=== PATIENT | male | born 1980 | race African-American/Black ===

== ENCOUNTER → 2016-10-09 11:01 | Outpatient (CLI) | payer MEDICARE ==
[~2016-10-09 11:01] MED LIST: DILANTIN100 MG PO; DILANTIN50 MG PO; FELBATOL PO; KEPPRA750 MG PO; MIRALAX17 GM PO; MULTIPLE VITAMI1 TA1 PO; OYST-CAL-5001 TAB PO
== END | disposition home or self-care (01) ==
LOC: D.LABREF 11:01
DX: Z51.81 Encounter for therapeutic drug level monitoring (principal); Z79.899 Other long term (current) drug therapy

== ENCOUNTER → 2016-10-30 10:04 | Outpatient (CLI) | payer MEDICARE ==
[2015-05-19 22:05] VITALS: BMI 22.5
[2016-10-30 13:00] LABS: ALBUMIN 4.1 g/dL (3.4-5.0); BILIRUBIN - DIRECT 0.06 mg/dL (0.00-0.30); BILIRUBIN - INDIRECT 0.07 mg/dL (0.00-1.00); BILIRUBIN - TOTAL 0.13 mg/dL (0.2-1.3); PHENYTOIN (DILANTIN) 19.3 ug/mL (10.0-20.0); PROTEIN - SERUM 7.8 g/dL (6.4-8.2)
== END | disposition home or self-care (01) ==
LOC: D.LABREF 10:04
PROVIDERS: Pediatrics
DX: Z51.81 Encounter for therapeutic drug level monitoring (principal); Z79.899 Other long term (current) drug therapy

== ENCOUNTER → 2016-11-29 14:13 | Outpatient (CLI) | payer MEDICARE ==
[2015-05-19 22:05] VITALS: BMI 22.5
[2016-11-29 16:51] LABS: BASOPHILS 0.2 % (0-2); EOSINOPHILS 3.9 % (0-7); HEMOGLOBIN 14.3 g/dL (13.5-17.5); LYMPHOCYTES 33.6 % (15-50); MCH 31.8 pg (26.0-34.0); MCV 93.5 fL (80.0-100.0); MEAN PLATELET VOLUME 9.2 fL (7.4-10.4); MONOCYTES 6.4 % (2-11); NEUTROPHILS 55.9 % (40-80); PLATELET COUNT 224 10x3/uL (130-400); RBC 4.49 10x6/uL (4.20-6.10); RDW 12.9 % (11.5-14.5); WBC 4.4 10x3/uL (4.8-10.8)
[2016-11-29 17:22] LABS: ALBUMIN 4.2 g/dL (3.4-5.0); BILIRUBIN - DIRECT 0.08 mg/dL (0.00-0.30); BILIRUBIN - INDIRECT 0.18 mg/dL (0.00-1.00); BILIRUBIN - TOTAL 0.26 mg/dL (0.2-1.3); PROTEIN - SERUM 7.9 g/dL (6.4-8.2)
== END | disposition home or self-care (01) ==
LOC: D.LABREF 14:13
PROVIDERS: Pediatrics
DX: R56.9 Unspecified convulsions (principal)

== ENCOUNTER → 2016-12-29 11:12 | Outpatient (CLI) | payer MEDICARE ==
[2015-05-19 22:05] VITALS: BMI 22.5
== END | disposition home or self-care (01) ==
LOC: D.LABREF 11:12
DX: Z51.81 Encounter for therapeutic drug level monitoring (principal); Z79.899 Other long term (current) drug therapy

== ENCOUNTER → 2017-01-05 16:08 | Outpatient (CLI) | payer MEDICARE ==
[2015-05-19 22:05] VITALS: BMI 22.5
== END | disposition home or self-care (01) ==
LOC: D.LABREF 16:08
DX: Z51.81 Encounter for therapeutic drug level monitoring (principal); Z79.899 Other long term (current) drug therapy

== ENCOUNTER 2017-01-11 17:32 | Emergency (ER) | payer MEDICARE ==
[2015-05-19 22:05] VITALS: BMI 22.5
[2017-01-11 19:50] LABS: BASOPHILS 0.2 % (0-2); EOSINOPHILS 5.2 % (0-7); HEMATOCRIT 39.7 % (42.0-54.0); HEMOGLOBIN 13.3 g/dL (13.5-17.5); LYMPHOCYTES 33.4 % (15-50); MCH 31.1 pg (26.0-34.0); MCHC 33.5 g/dL (31.0-37.0); MEAN PLATELET VOLUME 8.7 fL (7.4-10.4); MONOCYTES 10.3 % (2-11); NEUTROPHILS 50.9 % (40-80); PLATELET COUNT 216 10x3/uL (130-400); RBC 4.27 10x6/uL (4.20-6.10); RDW 13.1 % (11.5-14.5); WBC 4.6 10x3/uL (4.8-10.8)
[2017-01-11 20:11] LABS: ALBUMIN 3.6 g/dL (3.4-5.0); ALKALINE PHOSPHATASE 153 U/L (46-116); ALT (SGPT) 51 U/L (10-68); CALC OSMOLALITY 281 mosm/kg (275-300); CALCIUM 8.4 mg/dL (8.5-10.1); CHLORIDE - SERUM 104 mmol/L (98-107); CREATININE - SERUM 0.7 mg/dL (0.6-1.3); GLUCOSE 110 mg/dL (74-106); PHENYTOIN (DILANTIN) 19.9 ug/mL (10.0-20.0); SODIUM 141 mmol/L (136-145); UREA NITROGEN 12 mg/dL (7-18); eGFR NON AFRICAN AMERICAN > 90 mL/min (90-120)
== END 2017-01-11 21:28 | disposition home or self-care (01) ==
LOC: D.ER 17:32
PROVIDERS: Nurse Practitioner Family
DX: R56.9 Unspecified convulsions (principal); S01.81XA Laceration without foreign body of other part of head, initial encounter; X58.XXXA Exposure to other specified factors, initial encounter; Y93.89 Activity, other specified; Y92.89 Other specified places as the place of occurrence of the external cause; S06.0X9A Concussion with loss of consciousness of unspecified duration, initial encounter

== ENCOUNTER → 2017-06-09 18:07 | Outpatient (CLI) | payer MEDICARE ==
[2015-05-19 22:05] VITALS: BMI 22.5
== END | disposition home or self-care (01) ==
LOC: D.LAB 14:20 → D.LABREF 18:07
DX: R56.9 Unspecified convulsions (principal)

== ENCOUNTER → 2017-06-14 16:58 | Outpatient (CLI) | payer MEDICARE ==
[2015-05-19 22:05] VITALS: BMI 22.5
== END | disposition home or self-care (01) ==
LOC: D.LABREF 16:28
DX: R56.9 Unspecified convulsions (principal)

== ENCOUNTER → 2017-07-10 17:20 | Outpatient (CLI) | payer MEDICARE ==
[2015-05-19 22:05] VITALS: BMI 22.5
== END | disposition home or self-care (01) ==
LOC: D.LAB 17:00
DX: G40.209 Localization-related (focal) (partial) symptomatic epilepsy and epileptic syndromes with complex partial seizures, not intractable, without status epilepticus (principal)

== ENCOUNTER → 2017-07-12 08:40 | Outpatient (CLI) | payer MEDICARE ==
[2015-05-19 22:05] VITALS: BMI 22.5
== END | disposition home or self-care (01) ==
LOC: D.LAB 07-11 09:45
DX: G40.209 Localization-related (focal) (partial) symptomatic epilepsy and epileptic syndromes with complex partial seizures, not intractable, without status epilepticus (principal)

== ENCOUNTER → 2017-07-16 11:05 | Outpatient (CLI) | payer MEDICARE ==
[2015-05-19 22:05] VITALS: BMI 22.5
== END | disposition home or self-care (01) ==
LOC: D.LAB 11:01
DX: R56.9 Unspecified convulsions (principal)

== ENCOUNTER → 2017-07-25 09:08 | Outpatient (CLI) | payer MEDICARE ==
[2015-05-19 22:05] VITALS: BMI 22.5
== END | disposition home or self-care (01) ==
LOC: D.LAB 08:15
DX: G40.802 Other epilepsy, not intractable, without status epilepticus (principal); R89.2 Abnormal level of other drugs, medicaments and biological substances in specimens from other organs, systems and tissues

== ENCOUNTER 2017-09-05 09:31 | Outpatient (CLI) | payer MEDICARE ==
[~2017-09-05] VITALS: Ht 167.6 cm; Wt 59.1 kg
[2017-09-05] MEDS ORDERED: KEPPRA750 MG PO (10:03)
[2017-09-05] MEDS ORDERED: VITAMIN D5000 UNIT PO (10:07)
[2017-09-05] MEDS ORDERED: MAGNESIUM OXID250 MG PO (10:07)
[2017-09-05] MEDS ORDERED: FLORAJEN3 CAPS460 MG PO (10:07)
[2017-09-05] MEDS ORDERED: ALLER-CHLOR4 MG PO (10:08)
[2017-09-05 10:15] VITALS: BP 108/70; Ht 167.6 cm; Wt 59.1 kg
== END 2017-09-05 10:30 | disposition home or self-care (01) ==
LOC: D.OPS 09:31
DX: M81.8 Other osteoporosis without current pathological fracture (principal)

== ENCOUNTER → 2017-11-22 20:32 | Outpatient (CLI) | payer MEDICARE ==
[2017-09-05 10:15] VITALS: BMI 21.0
[~2017-11-22 20:32] MED LIST changes: +ALLER-CHLOR4 MG PO; +FLORAJEN3 CAPS460 MG PO; +MAGNESIUM OXID250 MG PO; +VITAMIN D5000 UNIT PO
== END | disposition home or self-care (01) ==
LOC: D.LAB 20:20
DX: Z51.81 Encounter for therapeutic drug level monitoring (principal); Z79.899 Other long term (current) drug therapy

== ENCOUNTER → 2017-12-10 14:09 | Outpatient (CLI) | payer MEDICARE ==
[2017-09-05 10:15] VITALS: BMI 21.0
== END | disposition home or self-care (01) ==
LOC: D.LABREF 14:09
DX: Z51.81 Encounter for therapeutic drug level monitoring (principal); Z79.899 Other long term (current) drug therapy

== ENCOUNTER → 2018-01-23 11:38 | Outpatient (CLI) | payer MEDICARE ==
[2017-09-05 10:15] VITALS: BMI 21.0
== END | disposition home or self-care (01) ==
LOC: D.LABREF 11:38
DX: Z51.81 Encounter for therapeutic drug level monitoring (principal); Z79.899 Other long term (current) drug therapy

== ENCOUNTER 2018-04-23 13:48 | Emergency (ER) | payer MEDICARE ==
[~2018-04-23] VITALS: Ht 167.6 cm; Wt 59.1 kg
[2018-04-23 14:07] VITALS: Ht 167.6 cm; Wt 59.1 kg
[2018-04-23] MEDS ORDERED: TYLENOL W/CODEI1 TAB PO (15:24)
[2018-04-23] MEDS ORDERED: BACTRIM 400-801 TAB PO (15:24)
[2018-04-23] MEDS ORDERED: VOLTAREN75 MG PO (15:46)
[2018-04-23 16:20] VITALS: BP 113/67
== END 2018-04-23 16:23 | disposition home or self-care (01) ==
LOC: D.ER 13:48
DX: S82.51XA Displaced fracture of medial malleolus of right tibia, initial encounter for closed fracture (principal); W18.30XA Fall on same level, unspecified, initial encounter; Y93.89 Activity, other specified; Y92.019 Unspecified place in single-family (private) house as the place of occurrence of the external cause; G40.909 Epilepsy, unspecified, not intractable, without status epilepticus

== ENCOUNTER → 2018-04-26 15:15 | Outpatient (CLI) | payer MEDICARE ==
[2018-04-23 14:07] VITALS: BMI 21.0
[~2018-04-26 15:15] MED LIST changes: +BACTRIM 400-801 TAB PO; +TYLENOL W/CODEI1 TAB PO; +VOLTAREN75 MG PO
== END | disposition home or self-care (01) ==
LOC: D.LABREF 15:15
DX: G40.909 Epilepsy, unspecified, not intractable, without status epilepticus (principal)

== ENCOUNTER → 2018-04-30 13:02 | Outpatient (CLI) | payer MEDICARE ==
[2018-04-23 14:07] VITALS: BMI 21.0
== END | disposition home or self-care (01) ==
LOC: D.LABREF 13:02
DX: G40.909 Epilepsy, unspecified, not intractable, without status epilepticus (principal); Z51.81 Encounter for therapeutic drug level monitoring; Z79.899 Other long term (current) drug therapy

== ENCOUNTER → 2018-05-16 15:01 | Outpatient (CLI) | payer MEDICARE ==
[2018-04-23 14:07] VITALS: BMI 21.0
== END | disposition home or self-care (01) ==
LOC: D.LAB 15:01
DX: G40.909 Epilepsy, unspecified, not intractable, without status epilepticus (principal); Z51.81 Encounter for therapeutic drug level monitoring; Z79.899 Other long term (current) drug therapy

== ENCOUNTER → 2018-05-24 14:32 | Outpatient (CLI) | payer MEDICARE ==
[2018-04-23 14:07] VITALS: BMI 21.0
== END | disposition home or self-care (01) ==
LOC: D.LABREF 14:32
DX: Z51.81 Encounter for therapeutic drug level monitoring (principal); Z79.899 Other long term (current) drug therapy

== ENCOUNTER → 2018-06-20 15:19 | Outpatient (CLI) | payer MEDICARE ==
[2018-04-23 14:07] VITALS: BMI 21.0
== END | disposition home or self-care (01) ==
LOC: D.LAB
DX: G40.209 Localization-related (focal) (partial) symptomatic epilepsy and epileptic syndromes with complex partial seizures, not intractable, without status epilepticus (principal)

== ENCOUNTER → 2018-06-27 19:50 | Outpatient (CLI) | payer MEDICARE ==
[2018-04-23 14:07] VITALS: BMI 21.0
== END | disposition home or self-care (01) ==
LOC: D.LABREF 19:50
DX: Z51.81 Encounter for therapeutic drug level monitoring (principal); Z79.899 Other long term (current) drug therapy

== ENCOUNTER → 2018-07-11 16:02 | Outpatient (CLI) | payer MEDICARE ==
[2018-04-23 14:07] VITALS: BMI 21.0
== END | disposition home or self-care (01) ==
LOC: D.LAB 16:02
DX: G40.209 Localization-related (focal) (partial) symptomatic epilepsy and epileptic syndromes with complex partial seizures, not intractable, without status epilepticus (principal)

== ENCOUNTER → 2018-10-19 13:11 | Outpatient (CLI) | payer MEDICARE | END | disposition home or self-care (01) | LOC: D.LABREF 13:11 | DX: G40.909 Epilepsy, unspecified, not intractable, without status epilepticus (principal) ==

== ENCOUNTER → 2019-09-04 15:20 | Outpatient (CLI) | payer MEDICARE ==
[2019-07-01 12:25] VITALS: BMI 20.8
[~2019-09-04 15:20] MED LIST changes: +KEPPRA250 MG PO; +NAPROSYN500 MG PO
== END | disposition home or self-care (01) ==
LOC: D.LABREF 15:20
PROVIDERS: ATTEND Pediatrics
DX: Z79.899 Other long term (current) drug therapy (principal)

== ENCOUNTER → 2019-09-24 14:04 | Outpatient (CLI) | payer MEDICARE ==
[2019-07-01 12:25] VITALS: BMI 20.8
== END | disposition home or self-care (01) ==
LOC: D.LABREF 14:04
PROVIDERS: ATTEND Pediatrics
DX: Z79.899 Other long term (current) drug therapy (principal)

== ENCOUNTER 2019-10-09 16:48 | Inpatient (IN) | payer MEDICARE ==
[~2019-10-09] VITALS: Ht 172.7 cm; Wt 58.1 kg
--- NOTE | ~2019-10-09 | EEG ---
PATIENT:JENNIFER VERAS MEDICAL RECORD: [id number] DATE OF : [birth year] LOCATION:D.222 D.MS ADMISSION DATE: 10/09/19 REFERRING PHYSICIAN: INTERPRETING PHYSICIAN: VIK RHODES MD DATE OF SERVICE: 10/14/2019 ROOM: #2220 ORDERED BY: Dr. Rhodes. CASE HISTORY: A 39-year-old male with known lifelong seizure disorder with report of recent new onset drop attacks. Long history of neurologic care with medications presently including phenytoin, levetiracetam, felbamate and has vagal nerve stimulator in place. PROCEDURE: EEG done as a routine bedside portable recording using the standard 10-20 international electrode system. 16 channels used with 17th as EKG. Photic stimulation and hyperventilation were done as activation procedures. DESCRIPTION: EEG opens with the patient awake with the record displaying only fair to poor organization of background with prominent background theta, best at 4-5 Hz with intermixed delta slowing. Frequent bilateral independent single theta slow waves as well as frequent bilateral independent single sharp waves were seen with more prominent sharps throughout the right hemisphere prominently at C4. Occasional complexes of moderate to high voltage theta and delta were seen bilaterally. Photic stimulation did not yield a significant driving response. There was a photomyogenic or photoparoxysmal response seen. Hyperventilation did not yield significant buildup in background voltages without paroxysmal response. Later in the record were seen brief bursts of generalized high voltage spike and wave. One associated with a twitch of the head and another twitch of the torso. These brief bursts of high voltage spike and wave are followed by delta slowing. IMPRESSION: Moderately abnormal EEG with diffuse background slowing suggesting diffuse cortical dysfunction and possibly static encephalopathy, the appearance of spike and wave suggests a seizure disorder with record confirming history of seizure disorder. TRANSINT:[id number] Voice Confirmation ID: [id number] DOCUMENT ID: [id number] VIK RHODES MD CC: [id number] DICTATION DATE: 10/14/191944 CLINICAL MANAGER HOME CARE: 10/15/19425 DIS IN 10/14/19 [place] [id number] [place] [id number]
[2019-10-09 17:18] LABS: BASOPHILS 0.2 % (0-2); EOSINOPHILS 2.9 % (0-7); HEMATOCRIT 43.7 % (42.0-54.0); HEMOGLOBIN 14.3 g/dL (13.5-17.5); IMMATURE GRANULOCYTES 0.2 % (0-5); LYMPHOCYTES 31.3 % (15-50); MCH 31.2 pg (26.0-34.0); MCHC 32.7 g/dL (31.0-37.0); MCV 95.2 fL (80.0-100.0); MEAN PLATELET VOLUME 8.6 fL (7.4-10.4); MONOCYTES 8.4 % (2-11); PLATELET COUNT 213 10x3/uL (130-400); RBC 4.59 10x6/uL (4.20-6.10); RDW 13.4 % (11.5-14.5); WBC 6.2 10x3/uL (4.8-10.8)
[2019-10-09 17:26] LABS: CALC OSMOLALITY 281 mosm/kg (275-300); CALCIUM 9.4 mg/dL (8.5-10.1); CARBON DIOXIDE 31.5 mmol/L (21.0-32.0); CHLORIDE - SERUM 102 mmol/L (98-107); GLUCOSE 100 mg/dL (74-106); POTASSIUM - SERUM 4.3 mmol/L (3.5-5.1); SODIUM 140 mmol/L (136-145); UREA NITROGEN 20 mg/dL (7-18); eGFR NON AFRICAN AMERICAN 87 mL/min (90-120)
[2019-10-09 17:32] LABS: ALKALINE PHOSPHATASE 118 U/L (30-120); ALT (SGPT) 39 U/L (10-68); BILIRUBIN - TOTAL 0.18 mg/dL (0.2-1.3); MAGNESIUM - SERUM 1.7 mg/dL (1.8-2.4); PHENYTOIN (DILANTIN) 18.8 ug/mL (10.0-20.0); PROTEIN - SERUM 7.7 g/dL (6.4-8.2)
[2019-10-09 21:15] LABS: BILIRUBIN NEGATIVE (NEGATIVE); GLUCOSE NEGATIVE (NEGATIVE); KETONE NEGATIVE (NEGATIVE); NITRITE NEGATIVE (NEGATIVE); SPECIFIC GRAVITY 1.025 (1.005-1.020); UROBILINOGEN NORMAL (NORMAL)
[2019-10-09 21:23] LABS: UDS - AMPHET NEGATIVE QUAL (NEGATIVE); UDS - BARB NEGATIVE QUAL (NEGATIVE); UDS - BENZO NEGATIVE QUAL (NEGATIVE); UDS - COCAINE NEGATIVE QUAL (NEGATIVE); UDS - OPIATE NEGATIVE QUAL (NEGATIVE); UDS - PCP NEGATIVE QUAL (NEGATIVE); UDS - THC NEGATIVE QUAL (NEGATIVE)
[2019-10-10] VITALS (7 sets, daily range): BP systolic 109–123; BP diastolic 61–80; Ht 172.7 cm; Wt 58.1 kg
[2019-10-11] VITALS: BP 118/64
[2019-10-11 04:00] VITALS: BP 110/67
[2019-10-11 05:32] LABS: BASOPHILS 0.2 % (0-2); EOSINOPHILS 3.5 % (0-7); HEMOGLOBIN 13.4 g/dL (13.5-17.5); IMMATURE GRANULOCYTES 0.4 % (0-5); LYMPHOCYTES 44.5 % (15-50); MCHC 32.7 g/dL (31.0-37.0); MCV 94.9 fL (80.0-100.0); MEAN PLATELET VOLUME 8.3 fL (7.4-10.4); MONOCYTES 8.6 % (2-11); NEUTROPHILS 42.8 % (40-80); PLATELET COUNT 226 10x3/uL (130-400); RBC 4.32 10x6/uL (4.20-6.10); RDW 13.5 % (11.5-14.5); WBC 5.2 10x3/uL (4.8-10.8)
[2019-10-11 05:47] LABS: CALC OSMOLALITY 274 mosm/kg (275-300); CALCIUM 7.6 mg/dL (8.5-10.1); CHLORIDE - SERUM 104 mmol/L (98-107); CREATININE - SERUM 0.8 mg/dL (0.6-1.3); GLUCOSE 90 mg/dL (74-106); MAGNESIUM - SERUM 1.9 mg/dL (1.8-2.4); PHOSPHOROUS 2.9 mg/dL (2.5-4.9); POTASSIUM - SERUM 3.6 mmol/L (3.5-5.1); SODIUM 137 mmol/L (136-145); UREA NITROGEN 14 mg/dL (7-18); eGFR NON AFRICAN AMERICAN > 90 mL/min (90-120)
[2019-10-11 09:00] VITALS: BP 103/67
[2019-10-11 14:18] VITALS: BP 114/68
[2019-10-11 20:00] VITALS: BP 117/70
[2019-10-12] VITALS: BP 111/74
[2019-10-12 04:00] VITALS: BP 108/74
[2019-10-12 05:28] LABS: BASOPHILS 0.1 % (0-2); EOSINOPHILS 2.1 % (0-7); HEMATOCRIT 41.6 % (42.0-54.0); HEMOGLOBIN 13.6 g/dL (13.5-17.5); IMMATURE GRANULOCYTES 0.1 % (0-5); LYMPHOCYTES 26.7 % (15-50); MCH 30.8 pg (26.0-34.0); MCHC 32.7 g/dL (31.0-37.0); MCV 94.1 fL (80.0-100.0); MEAN PLATELET VOLUME 8.3 fL (7.4-10.4); MONOCYTES 7.7 % (2-11); NEUTROPHILS 63.3 % (40-80); PLATELET COUNT 203 10x3/uL (130-400); RBC 4.42 10x6/uL (4.20-6.10); RDW 13.4 % (11.5-14.5)
[2019-10-12 05:36] LABS: WBC 7.6 10x3/uL (4.8-10.8)
[2019-10-12 05:57] LABS: CALC OSMOLALITY 276 mosm/kg (275-300); CALCIUM 7.7 mg/dL (8.5-10.1); CARBON DIOXIDE 24.9 mmol/L (21.0-32.0); CHLORIDE - SERUM 105 mmol/L (98-107); CREATININE - SERUM 0.7 mg/dL (0.6-1.3); GLUCOSE 93 mg/dL (74-106); MAGNESIUM - SERUM 2.1 mg/dL (1.8-2.4); PHOSPHOROUS 2.7 mg/dL (2.5-4.9); SODIUM 138 mmol/L (136-145); UREA NITROGEN 14 mg/dL (7-18); eGFR NON AFRICAN AMERICAN > 90 mL/min (90-120)
[2019-10-12 17:50] VITALS: BP 110/70
[2019-10-12 22:30] VITALS: BP 98/51
[2019-10-13 01:25] VITALS: BP 108/54
[2019-10-13 04:13] VITALS: BP 96/53
[2019-10-13 04:52] LABS: BASOPHILS 0.2 % (0-2); EOSINOPHILS 2.9 % (0-7); HEMATOCRIT 41.5 % (42.0-54.0); HEMOGLOBIN 13.5 g/dL (13.5-17.5); IMMATURE GRANULOCYTES 0.4 % (0-5); LYMPHOCYTES 38.3 % (15-50); MCH 30.9 pg (26.0-34.0); MCHC 32.5 g/dL (31.0-37.0); MEAN PLATELET VOLUME 8.4 fL (7.4-10.4); MONOCYTES 8.9 % (2-11); NEUTROPHILS 49.3 % (40-80); PLATELET COUNT 224 10x3/uL (130-400); RBC 4.37 10x6/uL (4.20-6.10); RDW 13.6 % (11.5-14.5)
[2019-10-13 05:18] LABS: WBC 5.6 10x3/uL (4.8-10.8)
[2019-10-13 05:26] LABS: CALC OSMOLALITY 274 mosm/kg (275-300); CALCIUM 7.5 mg/dL (8.5-10.1); CARBON DIOXIDE 26.3 mmol/L (21.0-32.0); CHLORIDE - SERUM 104 mmol/L (98-107); CREATININE - SERUM 0.8 mg/dL (0.6-1.3); GLUCOSE 91 mg/dL (74-106); MAGNESIUM - SERUM 1.9 mg/dL (1.8-2.4); PHOSPHOROUS 2.3 mg/dL (2.5-4.9); SODIUM 137 mmol/L (136-145); UREA NITROGEN 14 mg/dL (7-18); eGFR NON AFRICAN AMERICAN > 90 mL/min (90-120)
[2019-10-13 09:27] VITALS: BP 155/92
[2019-10-13 13:19] VITALS: BP 105/69
[2019-10-13 17:47] VITALS: BP 110/56
[2019-10-13 20:00] VITALS: BP 133/87
[2019-10-14 00:57] VITALS: BP 131/62
[2019-10-14 04:57] VITALS: BP 142/57
[2019-10-14 05:07] LABS: BASOPHILS 0.2 % (0-2); EOSINOPHILS 2.5 % (0-7); HEMATOCRIT 40.9 % (42.0-54.0); HEMOGLOBIN 13.3 g/dL (13.5-17.5); IMMATURE GRANULOCYTES 0.4 % (0-5); LYMPHOCYTES 39.9 % (15-50); MCH 31.1 pg (26.0-34.0); MCHC 32.5 g/dL (31.0-37.0); MCV 95.6 fL (80.0-100.0); MEAN PLATELET VOLUME 8.9 fL (7.4-10.4); MONOCYTES 8.6 % (2-11); NEUTROPHILS 48.4 % (40-80); PLATELET COUNT 210 10x3/uL (130-400); RBC 4.28 10x6/uL (4.20-6.10); RDW 13.6 % (11.5-14.5); WBC 5.7 10x3/uL (4.8-10.8)
[2019-10-14 05:25] LABS: CALC OSMOLALITY 280 mosm/kg (275-300); CALCIUM 8.1 mg/dL (8.5-10.1); CARBON DIOXIDE 27.7 mmol/L (21.0-32.0); CHLORIDE - SERUM 106 mmol/L (98-107); CREATININE - SERUM 0.7 mg/dL (0.6-1.3); GLUCOSE 88 mg/dL (74-106); MAGNESIUM - SERUM 1.7 mg/dL (1.8-2.4); POTASSIUM - SERUM 4.1 mmol/L (3.5-5.1); SODIUM 141 mmol/L (136-145); UREA NITROGEN 14 mg/dL (7-18); eGFR NON AFRICAN AMERICAN > 90 mL/min (90-120)
[2019-10-14 05:28] LABS: PHOSPHOROUS 3.4 mg/dL (2.5-4.9)
[2019-10-14 12:48] VITALS: BP 122/91
[2019-10-14] MEDS ORDERED: KEPPRA750 MG PO (14:57)
--- NOTE | 2019-10-14 16:13 | MORECARE ---
CASE MANAGEMENT DISCHARGE SUMMARY PATIENT: JENNIFER VERAS UNIT: [id number] ADM DATE: 10/09/19 AGE: 39 : [birth year] SEX: M ROOM/BED: D.2220 AUTHOR: JAZZY MONAHAN PHYSICIAN: REFERRING PHYSICIAN: ESTHER MANUEL MD DATE OF SERVICE: 10/14/19 Discharge Plan Patient Name: JENNIFER VERAS Facility: [facility]:[place] : 1980 Planned Disposition: Assisted Living Anticipated Discharge Date: Discharge Date: Expected LOS: Initial Reviewer: [email or web address] Initial Review Date: 10/09/2019 Generated: 10/14/19 5:12 pm Patient Name: JENNIFER VERAS Page [id number] at 1613 All edits/amendments must be made on the electronic document DICTATION DATE: 10/14/191611 PARTY DEMONSTRATOR: DENNIS 10/14/19 161 RPT#: [id number] DC DATE: STATUS: ADM IN [facility] [address] [place] [address] END OF REPORT
--- NOTE | 2019-10-14 16:21 | MORECARE ---
CASE MANAGEMENT DISCHARGE SUMMARY PATIENT: JENNIFER VERAS UNIT: [id number] ADM DATE: 10/09/19 AGE: 39 : [birth year] SEX: M ROOM/BED: D.2220 AUTHOR: JAZZY MONAHAN PHYSICIAN: REFERRING PHYSICIAN: ESTHER MANUEL MD DATE OF SERVICE: 10/14/19 Discharge Plan Patient Name: JENNIFER VERAS [facility] [facility] 1980 Planned Disposition: Assisted Living Anticipated Discharge Date: Discharge Date: Expected LOS: Initial Reviewer: [email or web address] Initial Review Date: 10/09/2019 Generated: 10/14/19 5:20 pm Last DP export: 10/14/19 3:13 p Patient Name: JENNIFER VERAS Page [id number] at 1621 All edits/amendments must be made on the electronic document DICTATION DATE: 10/14/19 1620 CLIENT DEVELOPMENT MANAGER: DM 10/14/19 1620 RPT#: [id number] DC DATE: STATUS: ADM IN [facility] [address] [place] [address] END OF REPORT
--- NOTE | 2019-10-14 16:29 | MORECARE ---
CASE MANAGEMENT DISCHARGE SUMMARY PATIENT: JENNIFER ACOSTA UNIT: [id number] ADM DATE: 10/09/19 AGE: 39 : [birth year] SEX: M ROOM/BED: D.2220 AUTHOR: HERO,DOC PHYSICIAN: REFERRING PHYSICIAN: ESTHER MANUEL MD DATE OF SERVICE: 10/14/19 Discharge Plan Patient Name: JENNIFER ACOSTA Facility: [facility]:[place] : 1980 Planned Disposition: Assisted Living Anticipated Discharge Date: Discharge Date: Expected LOS: Initial Reviewer: [email or web address] Initial Review Date: 10/09/2019 Generated: 10/14/19 5:29 pm Comments DCP- Discharge Planning Updated by [id number]: Mary Anne Haynes on 10/14/19 3:[address] Patient Name: JENNIFER ACOSTA Admission Status: ER Accout number: [id number] Admission Date: 10-09-2019 : 1980 Admission Diagnosis:OTH GENERALIZED EPILEPSY, NOT INTRACTABLE, W/O STAT EPI Attending: ESTHER MANUEL Current LOS: 5 Anticipated DC Date: Planned Disposition: Assisted Living Primary Insurance: MEDICARE A & B Discharge Planning Comments: CM spoke with Isabella Acosta (patients POA and mother) to complete initial dc planning assessment. CM educated his mother on the CM role and verbal consent given by patient to complete assessment. Patient lives at an apartment on [address] with [facility]. At discharge she plans to take him there and feels this is a safe discharge. CM discussed availability of home health, rehab services, and medical equipment. He works with [facility] and his medications are through [facility]. Patient did express concern about it being too noisy at his apartment. IMM went over with his mother via phone. CM will continue to follow and will assist as needed with dc plans/needs. End Stapler: Mary Anne Haynes DCPIA - Discharge Planning Initial Assessment Updated by [email or web address]: Mary Anne Haynes on 10/14/19 4:21 pm * Is the patient Alert and Oriented? Yes * PCP MAROI * Pharmacy [facility] * Preadmission Environment Senior Living * Facility Name [facility] [address] * ADLs Independent * Equipment None * List name and contact numbers for known caregivers / representatives who currently or will assist patient after discharge: ISABELLA ACOSTA (MOTHER) [phone] DIALLO REYNAGA (AUNT) * Verbal permission to speak to the caregivers and representatives has been obtained from the patient. N/A * Community resources currently utilized Other * Please name any agencies selected above. [facility] * Additional services required to return to the preadmission environment? No * Can the patient safely return to the preadmission environment? Yes * Has this patient been hospitalized within the prior 30 days at any hospital? No Coverage Notice Reviewer: [email or web address] Shala Haynes Notice Issued Date-Time: 10/14/2019 16:00 Notice Type: IM Discharge Notice Notice Delivered To: Family Member Relationship to Patient: Mother Complex Director Name: ISABELLA ACOSTA Delivery Method: PHONE - Phone Meche Days: Prior Verbal Notification: Yes Recipient Understood Notice: Recipient Signature: Med Rec Note Co-signed by Attending: Coverage Notice Comment: IMM OVER PHONE Last DP export: 10/14/19 3:21 p Patient Name: JENNIFER ACOSTA Page [phone] at 1629 All edits/amendments must be made on the electronic document DICTATION DATE: 10/14/191628 GAS PLANT OPERATOR: DENNIS 10/14/191628 RPT#: [id number] DC DATE: STATUS: ADM IN [facility] [address] [place] [address] END OF REPORT
--- NOTE | 2019-10-15 09:02 | MORECARE ---
CASE MANAGEMENT DISCHARGE SUMMARY PATIENT: JENNIFER ACOSTA UNIT: [id number] ADM DATE: 10/09/19 AGE: 39 : [birth year] SEX: M ROOM/BED: D.2220 AUTHOR: HERO,DOC PHYSICIAN: REFERRING PHYSICIAN: ESTHER MANUEL MD DATE OF SERVICE: 10/15/19 Discharge Plan Patient Name: JENNIFER ACOSTA Facility: [facility]:[place] : 1980 Planned Disposition: Assisted Living Anticipated Discharge Date: Discharge Date: 10/14/2019 Expected LOS: Initial Reviewer: [email or web address] Initial Review Date: 10/09/2019 Generated: 10/15/19 10:01 am Comments DCP- Discharge Planning Updated by [email or web address]: Mary Anne Haynes on 10/14/19 3:[address] Patient Name: JENNIFER ACOSTA Admission Status: ER Accout number: [id number] Admission Date: 10-09-2019 : 1980 Admission Diagnosis:OTH GENERALIZED EPILEPSY, NOT INTRACTABLE, W/O STAT EPI Attending: ESTHER MANUEL Current LOS: 5 Anticipated DC Date: Planned Disposition: Assisted Living Primary Insurance: MEDICARE A & B Discharge Planning Comments: CM spoke with Isabella Acosta (patients POA and mother) to complete initial dc planning assessment. CM educated his mother on the CM role and verbal consent given by patient to complete assessment. Patient lives at an apartment on [address] with [facility]. At discharge she plans to take him there and feels this is a safe discharge. CM discussed availability of home health, rehab services, and medical equipment. He works with [facility] and his medications are through [facility]. Patient did express concern about it being too noisy at his apartment. IMM went over with his mother via phone. CM will continue to follow and will assist as needed with dc plans/needs. Geophysical Laboratory Supervisor: Mary Anne Haynes DCPIA - Discharge Planning Initial Assessment Updated by [email or web address]: Mary Anne Haynes on 10/14/19 4:21 pm * Is the patient Alert and Oriented? Yes * PCP MARIO * Pharmacy [facility] * Preadmission Environment Skilled Nursing * Facility Name [facility] [address] * ADLs Independent * Equipment None * List name and contact numbers for known caregivers / representatives who currently or will assist patient after discharge: ISABELLA ACOSTA (MOTHER) [phone] DIALLO REYNAGA (AUNT) * Verbal permission to speak to the caregivers and representatives has been obtained from the patient. N/A * Community resources currently utilized Other * Please name any agencies selected above. [facility] * Additional services required to return to the preadmission environment? No * Can the patient safely return to the preadmission environment? Yes * Has this patient been hospitalized within the prior 30 days at any hospital? No Coverage Notice Reviewer: [email or web address] Shala Haynes Notice Issued Date-Time: 10/14/2019 16:00 Notice Type: IM Discharge Notice Notice Delivered To: Family Member Relationship to Patient: Mother Tow Boat Captain Name: ISABELLA ACOSTA Delivery Method: PHONE - Phone Meche Days: Prior Verbal Notification: Yes Recipient Understood Notice: Recipient Signature: Med Rec Note Co-signed by Attending: Coverage Notice Comment: IMM OVER PHONE Last DP export: 10/14/19 3:29 p Patient Name: JENNIFER ACOSTA Page [id number] at 0902 All edits/amendments must be made on the electronic document DICTATION DATE: 10/15/19900 PORTABLE TRACK CREW CHIEF: DENNIS 10/15/19900 RPT#: [id number] DC DATE:10/14/19 STATUS: DIS IN [facility] [address] [place] [address] END OF REPORT
== END 2019-10-14 17:26 | disposition home or self-care (01) | DRG 101 ==
LOC: D.ER 16:48 → D.MS 19:18
PROVIDERS: Family Medicine; ADMIT Internal Medicine Nephrology; ATTEND Internal Medicine Nephrology
DX: G40.409 Other generalized epilepsy and epileptic syndromes, not intractable, without status epilepticus (principal); D64.9 Anemia, unspecified; E83.42 Hypomagnesemia; S01.91XA Laceration without foreign body of unspecified part of head, initial encounter

== ENCOUNTER 2019-11-19 18:44 | Emergency (ER) | payer MEDICARE ==
[~2019-11-19] VITALS: Ht 172.7 cm; Wt 59.1 kg
[2019-11-19 19:11] VITALS: Ht 172.7 cm; Wt 59.1 kg
[2019-11-19 19:47] LABS: BASOPHILS 0.2 % (0-2); EOSINOPHILS 4.4 % (0-7); HEMOGLOBIN 13.9 g/dL (13.5-17.5); IMMATURE GRANULOCYTES 0.2 % (0-5); LYMPHOCYTES 42.6 % (15-50); MCH 31.4 pg (26.0-34.0); MCHC 33.1 g/dL (31.0-37.0); MCV 94.8 fL (80.0-100.0); MEAN PLATELET VOLUME 8.4 fL (7.4-10.4); MONOCYTES 12.1 % (2-11); NEUTROPHILS 40.5 % (40-80); PLATELET COUNT 181 10x3/uL (130-400); RBC 4.43 10x6/uL (4.20-6.10); RDW 12.9 % (11.5-14.5); WBC 4.5 10x3/uL (4.8-10.8)
[2019-11-19 20:17] LABS: CALC OSMOLALITY 279 mosm/kg (275-300); CARBON DIOXIDE 30.2 mmol/L (21.0-32.0); CHLORIDE - SERUM 104 mmol/L (98-107); CREATININE - SERUM 0.7 mg/dL (0.6-1.3); GLUCOSE 94 mg/dL (74-106); POTASSIUM - SERUM 4.2 mmol/L (3.5-5.1); SODIUM 139 mmol/L (136-145); UREA NITROGEN 17 mg/dL (7-18); eGFR NON AFRICAN AMERICAN > 90 mL/min (90-120)
[2019-11-19 20:21] LABS: ALBUMIN 3.9 g/dL (3.4-5.0); ALKALINE PHOSPHATASE 101 U/L (30-120); ALT (SGPT) 38 U/L (10-68); BILIRUBIN - TOTAL 0.18 mg/dL (0.2-1.3); MAGNESIUM - SERUM 1.7 mg/dL (1.8-2.4); PHENYTOIN (DILANTIN) 17.5 ug/mL (10.0-20.0); PROTEIN - SERUM 7.5 g/dL (6.4-8.2)
[2019-11-19 21:12] LABS: UDS - AMPHET NEGATIVE QUAL (NEGATIVE); UDS - BARB NEGATIVE QUAL (NEGATIVE); UDS - BENZO NEGATIVE QUAL (NEGATIVE); UDS - COCAINE NEGATIVE QUAL (NEGATIVE); UDS - OPIATE NEGATIVE QUAL (NEGATIVE); UDS - PCP NEGATIVE QUAL (NEGATIVE); UDS - THC NEGATIVE QUAL (NEGATIVE)
[2019-11-19 21:35] VITALS: BP 132/70
== END 2019-11-19 21:35 | disposition home or self-care (01) ==
LOC: D.ER 18:44
PROVIDERS: Family Medicine
DX: S09.90XA Unspecified injury of head, initial encounter (principal); R51 Headache; M54.2 Cervicalgia; G40.909 Epilepsy, unspecified, not intractable, without status epilepticus

== ENCOUNTER → 2019-11-26 13:19 | Outpatient (CLI) | payer MEDICARE ==
[2019-11-19 19:11] VITALS: BMI 19.8
[~2019-11-26 13:19] MED LIST changes: +KEPPRA1000 MG PO
== END | disposition home or self-care (01) ==
LOC: D.LABREF 13:19
PROVIDERS: ATTEND Pediatrics
DX: R56.9 Unspecified convulsions (principal)

== ENCOUNTER 2019-11-28 15:33 | Emergency (ER) | payer MEDICARE ==
[~2019-11-28] VITALS: Ht 172.7 cm; Wt 59.1 kg
[~2019-11-28 15:33] MED LIST changes: -KEPPRA1000 MG PO
[2019-11-28 15:36] VITALS: Ht 172.7 cm; Wt 59.1 kg
[2019-11-28] MEDS ORDERED: KEPPRA1000 MG PO ×2 (15:42→16:41)
[2019-11-28 15:59] LABS: BASOPHILS 0.4 % (0-2); EOSINOPHILS 3.3 % (0-7); HEMATOCRIT 41.7 % (42.0-54.0); HEMOGLOBIN 14.1 g/dL (13.5-17.5); IMMATURE GRANULOCYTES 0.2 % (0-5); LYMPHOCYTES 33.3 % (15-50); MCH 31.4 pg (26.0-34.0); MCHC 33.8 g/dL (31.0-37.0); MCV 92.9 fL (80.0-100.0); MEAN PLATELET VOLUME 8.5 fL (7.4-10.4); MONOCYTES 7.7 % (2-11); NEUTROPHILS 55.1 % (40-80); PLATELET COUNT 203 10x3/uL (130-400); RBC 4.49 10x6/uL (4.20-6.10); RDW 13.1 % (11.5-14.5); WBC 5.2 10x3/uL (4.8-10.8)
[2019-11-28 16:09] LABS: CALC OSMOLALITY 278 mosm/kg (275-300); CALCIUM 8.9 mg/dL (8.5-10.1); CHLORIDE - SERUM 104 mmol/L (98-107); CREATININE - SERUM 0.9 mg/dL (0.6-1.3); GLUCOSE 88 mg/dL (74-106); POTASSIUM - SERUM 4.3 mmol/L (3.5-5.1); SODIUM 139 mmol/L (136-145); UREA NITROGEN 19 mg/dL (7-18); eGFR NON AFRICAN AMERICAN > 90 mL/min (90-120)
[2019-11-28 16:15] LABS: ALBUMIN 3.9 g/dL (3.4-5.0); ALKALINE PHOSPHATASE 107 U/L (30-120); ALT (SGPT) 41 U/L (10-68); MAGNESIUM - SERUM 1.6 mg/dL (1.8-2.4); PHENYTOIN (DILANTIN) 19.4 ug/mL (10.0-20.0); PROTEIN - SERUM 7.7 g/dL (6.4-8.2)
== END 2019-11-28 16:48 | disposition home or self-care (01) ==
LOC: D.ER 15:33
PROVIDERS: Family Medicine
DX: R56.9 Unspecified convulsions (principal)

== ENCOUNTER 2019-12-03 18:44 | Emergency (ER) | payer MEDICARE ==
[~2019-12-03] VITALS: Ht 172.7 cm; Wt 59.0 kg
[~2019-12-03 18:44] MED LIST changes: +KEPPRA1000 MG PO
[2019-12-03 18:52] VITALS: Ht 172.7 cm; Wt 59.0 kg
[2019-12-03 20:58] VITALS: BP 120/79
== END 2019-12-03 20:45 | disposition home or self-care (01) ==
LOC: D.ER 18:44
DX: S01.112A Laceration without foreign body of left eyelid and periocular area, initial encounter (principal); W45.8XXA Other foreign body or object entering through skin, initial encounter; Y93.9 Activity, unspecified; Y92.9 Unspecified place or not applicable

== ENCOUNTER → 2019-12-12 11:02 | Outpatient (CLI) | payer MEDICARE ==
[2019-12-03 18:52] VITALS: BMI 19.8
[2019-12-12 12:25] LABS: PHENYTOIN (DILANTIN) 22.3 ug/mL (10.0-20.0)
== END | disposition home or self-care (01) ==
LOC: D.LABREF 11:02
PROVIDERS: ATTEND Pediatrics
DX: Z79.899 Other long term (current) drug therapy (principal)

== ENCOUNTER → 2020-01-08 13:30 | Outpatient (CLI) | payer MEDICARE ==
[2019-12-03 18:52] VITALS: BMI 19.8
== END | disposition home or self-care (01) ==
LOC: D.LABREF 13:30
PROVIDERS: ATTEND Pediatrics
DX: R56.9 Unspecified convulsions (principal)

== ENCOUNTER → 2020-01-09 15:03 | Outpatient (CLI) | payer MEDICARE ==
[2019-12-03 18:52] VITALS: BMI 19.8
== END | disposition home or self-care (01) ==
LOC: D.LABREF 15:03
PROVIDERS: ATTEND Pediatrics
DX: Z79.899 Other long term (current) drug therapy (principal)

== ENCOUNTER → 2020-01-27 10:21 | Outpatient (CLI) | payer MEDICARE ==
[2019-12-03 18:52] VITALS: BMI 19.8
== END | disposition home or self-care (01) ==
LOC: D.LABREF 10:21
PROVIDERS: ATTEND Pediatrics
DX: R56.9 Unspecified convulsions (principal)

== ENCOUNTER → 2020-01-28 12:26 | Outpatient (CLI) | payer MEDICARE ==
[2019-12-03 18:52] VITALS: BMI 19.8
== END | disposition home or self-care (01) ==
LOC: D.LABREF 12:26
PROVIDERS: ATTEND Pediatrics
DX: Z79.899 Other long term (current) drug therapy (principal)

== ENCOUNTER → 2020-01-29 08:48 | Outpatient (CLI) | payer MEDICARE ==
[2019-12-03 18:52] VITALS: BMI 19.8
== END | disposition home or self-care (01) ==
LOC: D.LABREF 08:48
PROVIDERS: ATTEND Pediatrics
DX: R56.9 Unspecified convulsions (principal)

== ENCOUNTER → 2020-01-31 10:03 | Outpatient (CLI) | payer MEDICARE ==
[2019-12-03 18:52] VITALS: BMI 19.8
== END | disposition home or self-care (01) ==
LOC: D.LABREF 10:03
PROVIDERS: ATTEND Pediatrics
DX: Z79.899 Other long term (current) drug therapy (principal)

== ENCOUNTER → 2020-02-03 14:59 | Outpatient (CLI) | payer MEDICARE ==
[2019-12-03 18:52] VITALS: BMI 19.8
== END | disposition home or self-care (01) ==
LOC: D.LABREF 14:59
PROVIDERS: ATTEND Pediatrics
DX: Z79.899 Other long term (current) drug therapy (principal)

== ENCOUNTER → 2020-02-13 18:09 | Outpatient (CLI) | payer MEDICARE ==
[2019-12-03 18:52] VITALS: BMI 19.8
== END | disposition home or self-care (01) ==
LOC: D.LABREF 18:09
PROVIDERS: ATTEND Pediatrics
DX: Z51.81 Encounter for therapeutic drug level monitoring (principal)

== ENCOUNTER → 2020-02-20 16:29 | Outpatient (CLI) | payer MEDICARE ==
[2019-12-03 18:52] VITALS: BMI 19.8
== END | disposition home or self-care (01) ==
LOC: D.LABREF 16:29
PROVIDERS: ATTEND Pediatrics
DX: Z51.81 Encounter for therapeutic drug level monitoring (principal)

== ENCOUNTER → 2020-03-01 15:09 | Outpatient (CLI) | payer MEDICARE ==
[2019-12-03 18:52] VITALS: BMI 19.8
== END | disposition home or self-care (01) ==
LOC: D.LABREF 15:09
PROVIDERS: ATTEND Pediatrics
DX: Z51.81 Encounter for therapeutic drug level monitoring (principal)

== ENCOUNTER → 2020-03-10 16:57 | Outpatient (CLI) | payer MEDICARE ==
[2019-12-03 18:52] VITALS: BMI 19.8
== END | disposition home or self-care (01) ==
LOC: D.LABREF 16:57
PROVIDERS: ATTEND Emergency Medicine
DX: R56.9 Unspecified convulsions (principal)

== ENCOUNTER → 2020-03-17 13:16 | Outpatient (CLI) | payer MEDICARE ==
[2019-12-03 18:52] VITALS: BMI 19.8
== END | disposition home or self-care (01) ==
LOC: D.LABREF 13:16
PROVIDERS: ATTEND Pediatrics
DX: Z51.81 Encounter for therapeutic drug level monitoring (principal)

== ENCOUNTER → 2020-03-29 13:51 | Outpatient (CLI) | payer MEDICARE ==
[2019-12-03 18:52] VITALS: BMI 19.8
== END | disposition home or self-care (01) ==
LOC: D.LABREF 13:51
PROVIDERS: ATTEND Pediatrics
DX: R56.9 Unspecified convulsions (principal)

== ENCOUNTER → 2020-04-07 13:19 | Outpatient (CLI) | payer MEDICARE ==
[2019-12-03 18:52] VITALS: BMI 19.8
== END | disposition home or self-care (01) ==
LOC: D.LABREF 13:19
PROVIDERS: ATTEND Pediatrics
DX: R56.9 Unspecified convulsions (principal)

== ENCOUNTER → 2020-04-16 13:47 | Outpatient (CLI) | payer MEDICARE ==
[2019-12-03 18:52] VITALS: BMI 19.8
== END | disposition home or self-care (01) ==
LOC: D.LABREF 13:47
PROVIDERS: ATTEND Pediatrics
DX: R56.9 Unspecified convulsions (principal)

== ENCOUNTER → 2020-08-28 13:25 | Outpatient (CLI) | payer MEDICARE ==
[2020-07-18 17:23] VITALS: BMI 21.3
== END | disposition home or self-care (01) ==
LOC: D.LABREF 13:25
PROVIDERS: ATTEND Pediatrics
DX: R56.9 Unspecified convulsions (principal)

== ENCOUNTER → 2020-09-04 16:01 | Outpatient (CLI) | payer MEDICARE ==
[2020-07-18 17:23] VITALS: BMI 21.3
== END | disposition home or self-care (01) ==
LOC: D.LABREF 16:01
PROVIDERS: ATTEND Pediatrics
DX: R56.9 Unspecified convulsions (principal)

== ENCOUNTER → 2020-09-11 14:08 | Outpatient (CLI) | payer MEDICARE ==
[2020-07-18 17:23] VITALS: BMI 21.3
== END | disposition home or self-care (01) ==
LOC: D.LABREF 14:08
PROVIDERS: ATTEND Pediatrics
DX: R56.9 Unspecified convulsions (principal)

== ENCOUNTER → 2020-09-18 15:24 | Outpatient (CLI) | payer MEDICARE ==
[2020-07-18 17:23] VITALS: BMI 21.3
== END | disposition home or self-care (01) ==
LOC: D.LABREF 15:24
PROVIDERS: ATTEND Pediatrics
DX: R56.9 Unspecified convulsions (principal)

== ENCOUNTER → 2020-10-03 13:26 | Outpatient (CLI) | payer MEDICARE ==
[2020-07-18 17:23] VITALS: BMI 21.3
== END | disposition home or self-care (01) ==
LOC: D.LABREF 13:26
PROVIDERS: ATTEND Pediatrics
DX: R56.9 Unspecified convulsions (principal)

== ENCOUNTER → 2020-10-16 14:52 | Outpatient (CLI) | payer MEDICARE ==
[2020-07-18 17:23] VITALS: BMI 21.3
== END | disposition home or self-care (01) ==
LOC: D.LABREF 14:52
PROVIDERS: ATTEND Pediatrics
DX: R56.9 Unspecified convulsions (principal)

== ENCOUNTER → 2020-11-06 16:51 | Outpatient (CLI) | payer MEDICARE ==
[2020-07-18 17:23] VITALS: BMI 21.3
== END | disposition home or self-care (01) ==
LOC: D.LABREF 16:51
PROVIDERS: ATTEND Pediatrics
DX: R56.9 Unspecified convulsions (principal)

== ENCOUNTER → 2020-11-13 10:37 | Outpatient (CLI) | payer MEDICARE ==
[2020-07-18 17:23] VITALS: BMI 21.3
== END | disposition home or self-care (01) ==
LOC: D.LABREF 10:37
PROVIDERS: ATTEND Pediatrics
DX: R56.9 Unspecified convulsions (principal)

== ENCOUNTER → 2020-11-20 08:41 | Outpatient (CLI) | payer MEDICARE ==
[2020-07-18 17:23] VITALS: BMI 21.3
== END | disposition home or self-care (01) ==
LOC: D.LABREF 08:41
PROVIDERS: ATTEND Pediatrics
DX: R56.9 Unspecified convulsions (principal)

== ENCOUNTER → 2020-12-11 13:43 | Outpatient (CLI) | payer MEDICARE ==
[2020-07-18 17:23] VITALS: BMI 21.3
== END | disposition home or self-care (01) ==
LOC: D.LABREF 13:43
PROVIDERS: ATTEND Pediatrics
DX: R56.9 Unspecified convulsions (principal)

== ENCOUNTER → 2021-01-01 15:27 | Outpatient (CLI) | payer MEDICARE ==
[2020-07-18 17:23] VITALS: BMI 21.3
== END | disposition home or self-care (01) ==
LOC: D.LABREF 15:27
PROVIDERS: ATTEND Pediatrics
DX: R56.9 Unspecified convulsions (principal)